=== PATIENT | male | born 1985 | race Hispanic/Latino ===

== ENCOUNTER 2023-04-02 17:43 | Emergency (ER) | payer SELFPAY ==
[2023-04-02 18:12] VITALS: BP 132/88; PULSE 99; RESP 22; TEMP 37.3; O2SAT 99
--- NOTE | 2023-04-02 19:30 | ED.GENADULT ---
HPI - General Adult General Chief complaint: Extremity Injury, Lower Stated complaint: left foot pain, swelling Time Seen by Provider: 04/02/23 19:00 History of Present Illness HPI narrative: this is a 37-year-old male with no medical problems presenting to ED for foot pain. Patient was stung by a bee 3 days ago on his toe. Since then he has developed increasing redness and swelling. Patient denies allergies to bee stings, fever chills nausea vomiting diarrhea or any other complaints Related Data Home Medications Medication Instructions Recorded Confirmed metformin 500 mg tablet 500 mg PO BID 04/02/23 Allergies Allergy/AdvReac Type Severity Reaction Status Date / Time No Known Allergies Allergy Verified 04/02/23 18:17 Exam Narrative: APPEARANCE: No apparent distress. Head: atraumatic. EYES: EOMI, NOSE: Atraumatic NECK: Trachea midline RESPIRATORY: No increased rate of breathing CARDIOVASCULAR: RRR, ABDOMINAL: Non-distended MUSCULOSKELETAl: No obvious deformities NEURO: Alert. Moving 4/4 extremities SKIN:: left foot shows a small punctate wound at the dorsal aspect base of the 3rd toe with mild cellulitic changes. no abscess PSYCHIATRIC: Normal affect Course Vital Signs Vital signs: Vital Signs Temperature 99.1 F 04/02/23 18:12 Pulse Rate 99 04/02/23 18:12 Respiratory Rate 22 H 04/02/23 18:12 Blood Pressure 132/88 04/02/23 18:12 Pulse Oximetry 99 04/02/23 18:12 Oxygen Delivery Room Air 04/02/23 18:12 Temperature 99.1 F 04/02/23 18:12 Pulse Rate 99 04/02/23 18:12 Respiratory Rate 22 H 04/02/23 18:12 Blood Pressure 132/88 04/02/23 18:12 Pulse Oximetry 99 04/02/23 18:12 Oxygen Delivery Room Air 04/02/23 18:[address] [facility] Narrative Medical decision making narrative: -Course: 37-year-old presenting with a bee sting and subsequent cellulitis. Patient will be treated with cellulitis with close outpatient follow-up. Given return precautions symptoms do not improve in next 48 hours. -DDX includes but is not limited to: cellulitis, allergic reaction -Factors complicating care: Patient denies medical problems. 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 x7 days, motrin, tylenol Vital Signs Vital Signs: Vital Signs Temperature 99.1 F 04/02/23 18:12 Pulse Rate 99 04/02/23 18:12 Respiratory Rate 22 H 04/02/23 18:12 Blood Pressure 132/88 04/02/23 18:12 Pulse Oximetry 99 04/02/23 18:12 Oxygen Delivery Room Air 04/02/23 18:12 Temperature 99.1 F 04/02/23 18:12 Pulse Rate 99 04/02/23 18:12 Respiratory Rate 22 H 04/02/23 18:12 Blood Pressure 132/88 04/02/23 18:12 Pulse Oximetry 99 04/02/23 18:12 Oxygen Delivery Room Air 04/02/23 18:12 Discharge Plan Discharge Clinical Impression: Bee sting, Cellulitis Patient Disposition: Home, Self-Care Condition: Stable Instructions: Antibiotic Form, Cellulitis (ED) Additional Instructions: Please take antibiotics as instructed. Use Motrin and Tylenol for pain. If your symptoms do not improve in 48 hours please return to emergency room for re-evaluation. Prescriptions: New cephalexin 500 mg capsule 500 mg PO .q6 7 Days Qty: 28 0RF ibuprofen 800 mg tablet 800 mg PO TID PRN (Reason: pain) 7 Days Qty: 21 0RF acetaminophen 500 mg tablet 1,000 mg PO TID PRN (Reason: za) 7 Days Qty: 42 0RF No Action metformin 500 mg Tablet 500 mg PO BID Follow-up/Referrals: PHYSICIAN,[facility] [Primary Care Provider] -
[2023-04-02] MEDS: ACETAMINOPHEN 500 MG TABLET 1000 MG PO (19:36)
[2023-04-02] MEDS: IBUPROFEN 400 MG TABLET 800 MG PO (19:37)
[2023-04-02] MEDS: CEPHALEXIN 500 MG CAPSULE PO (20:05)
== END 2023-04-02 20:25 | disposition home or self-care (01) ==
PROVIDERS: Emergency Provider Emergency Medicine
DX: T63.441A Toxic effect of venom of bees, accidental (unintentional), initial encounter (principal); L03.032 Cellulitis of left toe; Z79.84 Long term (current) use of oral hypoglycemic drugs
CPT/HCPCS: 99283; A9270